=== PATIENT | female | born 1980 | race Caucasian/White ===

== ENCOUNTER 2018-09-01 09:07 | Emergency (ER) | payer MEDICAID ==
[~2018-09-01] VITALS: Ht 165.1 cm; Wt 76.0 kg
[2018-09-01 09:08] VITALS: BP 114/58; PULSE 66; RESP 16; Ht 165.1 cm; Wt 76.0 kg
[2018-09-01] MEDS ORDERED: LORA10CA PO (10:36)
[2018-09-01] MEDS ORDERED: KETO5DRO71 OP (10:36)
--- NOTE | 2018-09-01 17:25 | ERD ---
ER Documentation Chief Complaint Chief Complaint SWELLING OF EYES WITH ITCHING X 1 MONTH HPI Patient is a 38-year-old female with no significant past medical history presenting to the emergency department complaining of bilateral eye itching and periorbital swelling intermittently for the past 1 month. She has been using [id number] eyedrops without significant relief. Symptoms are moderate in severity and worse at night. Patient denies visual changes, fevers, chills, or other symptoms at this time. Patient does not wear glasses or contacts. ROS All systems reviewed and are negative except as per history of present illness. Medications Home Meds Active Scripts Ketotifen Fumarate (ZADITOR) 5 Ml Drops, 5 ML OP BID, #1 BOTTLE Prov:DAYDAY GAITAN PA-C 09/01/18 Loratadine* (Claritin*) 10 Mg Capsule, 10 MG PO DAILY, #30 CAP Prov:DAYDAY GAITAN PA-C 09/01/18 Allergies Allergies: Coded Allergies: No Known Allergies (Verified Allergy, Unknown, 08/02/06) PMhx/Soc Medical and Surgical Hx: pt denies Medical Hx, pt denies Surgical Hx Hx Alcohol Use: No Hx Substance Use: No Hx Tobacco Use: No FmHx Family History: No diabetes Physical Exam Vitals Vital Signs Date Temp Pulse Resp B/P (MAP) Pulse Ox O2 O2 Flow FiO2 Time Delivery Rate 09/01/18 97.8 66 16 114/58 99 09:08 (76) Physical Exam Const: No acute distress Head: Atraumatic Eyes: Mild bilateral conjunctival injection. Extraocular movements are intact bilaterally. There is no significant periorbital edema. ENT: Normal External Ears, Nose and Mouth. Neck: Full range of motion. No meningismus. Resp: Clear to auscultation bilaterally Cardio: Regular rate and rhythm, no murmurs Skin: No petechiae or rashes Ext: No cyanosis, or edema Neur: Awake and alert Psych: Normal Mood and Affect Procedures/MDM 38-year-old female presenting to the emergency department with signs and symptoms most consistent with allergic conjunctivitis. Patient stable and appropriate for discharge and further treatment as an outpatient. Patient agreed with the diagnosis, plan, need for follow-up, return precautions. Ophthalmologic Assessment: Patient's ocular symptoms have stabilized while they have been evaluated in the department and are appropriate for outpatient work up. No evidence of ruptured globe, retinal detachment, acute angle closure glaucoma, or deep space infection. Plan for 24 hour ophthalmologic follow up. Departure Diagnosis: Primary Impression: Allergic conjunctivitis Laterality: bilateral Qualified Codes: H10.13 - Acute atopic conjunctivitis, bilateral Condition: Fair Patient Instructions: Conjunctivitis Caused by Irritation Referrals: [facility] Hours: Mon - Fri 9:00 AM - 5:00 PM Additional Instructions: Call your primary care doctor TOMORROW for an appointment during the next 1-2 days.See the doctor sooner or return here if your condition worsens before your appointment time. SPECIALIST: YOU HAVE A MEDICAL CONDITION WHICH REQUIRES YOU TO SEE A S PECIALIST WITHIN THE NEXT 1-2 DAYS. PLEASE FOLLOW UP WITH YOUR PRIMARY PHYSICIAN FOR REFFERAL.IF YOU DO NOT HAVE A PRIMARY CARE PHYSICIAN AND/OR YOU CAN NOT AFFORD TO SEE A PHYSICIAN THE FOLLOWING RESOURCES HAVE BEEN SUPPLIED TO YOU. IT IS YOUR RESPONSIBILITY TO BE SEEN BY THE SPECIALIST: OPTHALMOLOGY DAYDAY GAITAN PA-C Sep 01, 2018 17:25
== END 2018-09-01 11:33 | disposition home or self-care (01) ==
LOC: FTE 09:07
DX: H10.13 Acute atopic conjunctivitis, bilateral (principal)
CPT/HCPCS: 99282

== ENCOUNTER 2018-09-22 11:35 | Emergency (ER) | payer MEDICAID ==
[~2018-09-22] VITALS: Wt 78.9 kg
[~2018-09-22 11:35] MED LIST: KETO5DRO71 OP; LORA10CA PO
[2018-09-22 11:37] VITALS: BP 125/62; PULSE 62; RESP 18
--- NOTE | 2018-09-22 12:46 | ERD ---
ER Documentation Chief Complaint Chief Complaint 9 YEARS AGO, DRAINAGE NOTED FROM SITE HPI This is a 38-year-old female who presents to the emergency department with concern of a 4 cm prepubic area of reddening along scar. Last C- section 9 years ago. States rash started 2-3 weeks ago with small red spot and has increased in area since then. Denies abdominal pain, no fevers, no difficulty with urination or having bowel movements. ROS All systems reviewed and are negative except as per history of present illness. Medications Home Meds Active Scripts Mupirocin* (Bactroban*) 2% -22 Gram Oint...g., 1 APPLIC TOP TID for 10 Days, #22 GM Prov:DIANA SÁNCHEZ [employer]ESS DEVELOPMENT CHEMIST 09/22/18 Ketotifen Fumarate (ZADITOR) 5 Ml Drops, 5 ML OP BID, #1 BOTTLE Prov:DAYDAY GAITAN PA-C 09/01/18 Loratadine* (Claritin*) 10 Mg Capsule, 10 MG PO DAILY, #30 CAP Prov:DAYDAY GAITAN PA-C 09/01/18 Allergies Allergies: Coded Allergies: No Known Allergies (Verified Allergy, Unknown, 08/02/06) PMhx/Soc Medical and Surgical Hx: pt denies Medical Hx Hx Alcohol Use: No Hx Substance Use: No Hx Tobacco Use: No Physical Exam Vitals Vital Signs Date Temp Pulse Resp B/P (MAP) Pulse Ox O2 O2 Flow FiO2 Time Delivery Rate 09/22/18 97.3 62 18 125/62 99 11:37 (83) Physical Exam Const: No acute distress Head: Atraumatic Eyes: Normal Conjunctiva, PERRL ENT: Normal External Ears, Nose and Mouth. Neck: Full range of motion. No meningismus. Resp: Clear to auscultation bilaterally Cardio: Regular rate and rhythm, no murmurs Abd: Soft, non tender, non distended. Normal bowel sounds. Skin: No petechiae, brusing, abrasions. Suprapubic incision: 4 cm x 1 cm area of redness, slightly pink/honey crusted plaques, no satellite lesions, no drainage noted, no induration, no pain with palpation Back: No midline or flank tenderness Ext: No cyanosis, or edema Neur: Awake and alert Psych: Normal Mood and Affect Procedures/MDM This 38-year-old female presents with concern of redness over prior scar. This appears to be a superficial skin infection most likely impetigo. Low suspicion for fungal infection due to lack of satellite lesions, wound is not erythematous, does not itch. Low suspicion for complication of incision due to lack of pain with palpation, no induration, no warmth, no drainage. Although this infection does not appear to be a folliculitis as redness extends superiorly from pubic area, patient does shave her pubic hair below this area, patient was instructed to be careful with shaving. Additionally patient has abdominal pannus that lays over lower pubic area. Patient instructed on preventing intertrigo and use of A&D ointment and keeping area dry. Patient instructed on close follow-up with primary care provider for evaluation of wound progress with use of Bactroban. Departure Diagnosis: Primary Impression: Impetigo Condition: Stable Patient Instructions: Impetigo [facility]errals: [facility] Additional Instructions: Thank you very much for allowing us to participate in your care. Your health and safety is our top priority at [facility]. Call your primary care doctor TOMORROW for an appointment during the next 2-4 days and bring all the information and medications prescribed. Have prescriptions filled and follow precisely the directions on the label. If the symptoms get worse and your provider is unavailable, return to the Emergency Department immediately. Use prescribed Bactroban applied to area 3 times a day for 7-10 days. Return to the emergency room immediately with any worsening of symptoms including increased redness, heat, drainage, pain. DIANA SÁNCHEZ NP Sep 22, 2018 12:46
[2018-09-22] MEDS ORDERED: MUPI22OI2 TOP (12:48)
== END 2018-09-22 13:35 | disposition home or self-care (01) ==
LOC: FTE 11:35
DX: L01.00 Impetigo, unspecified (principal)
CPT/HCPCS: 99283

== ENCOUNTER 2018-09-27 07:04 | Emergency (ER) | payer MEDICAID ==
[~2018-09-27] VITALS: Wt 78.4 kg
[~2018-09-27 07:04] MED LIST changes: +MUPI22OI2 TOP
[2018-09-27 07:05] VITALS: BP 107/53; PULSE 67; RESP 18
--- NOTE | 2018-09-27 08:17 | ERD ---
ER Documentation Chief Complaint Chief Complaint esperanza eye lid swelling HPI 38-year-old female, presents to the emergency department, complaining of intermittent episodes of bilateral eyelid swelling after having artificial eyelashes extension 3 months ago. The extensions were removed 1 month ago but she is still persist with intermittent episodes of localized pruritic erythema and edema. No discharge, no blurred vision, no fever, no chills, no headache. ROS All systems reviewed and are negative except as per history of present illness. Medications Home Meds Active Scripts Prednisone* (Prednisone*) 20 Mg Tab, 40 MG PO DAILY for 5 Days, TAB Prov:EROS HUNT MD 09/27/18 Triamcinolone Acetonide (Triamcinolone Acetonide) 0.5% - 15 Gm Oint..gm., 1 APPLIC TOP BID for 5 Days, #1 TUB Prov:EROS HUNT MD 09/27/18 Mupirocin* (Bactroban*) 2% -22 Gram Oint...g., 1 APPLIC TOP TID for 10 Days, #22 GM Prov:DIANA SÁNCHEZ NP 09/22/18 Ketotifen Fumarate (ZADITOR) 5 Ml Drops, 5 ML OP BID, #1 BOTTLE Prov:DAYDAY GAITAN PA-C 09/01/18 Loratadine* (Claritin*) 10 Mg Capsule, 10 MG PO DAILY, #30 CAP Prov:DAYDAY GAITAN PA-C 09/01/18 Allergies Allergies: Coded Allergies: No Known Allergies (Verified Allergy, Unknown, 08/02/06) PMhx/Soc Hx Alcohol Use: Yes (occassional) Hx Substance Use: No Hx Tobacco Use: No Smoking Status: Never smoker FmHx Family History: No diabetes, No coronary disease Physical Exam Vitals Vital Signs Date Temp Pulse Resp B/P (MAP) Pulse Ox O2 O2 Flow FiO2 Time Delivery Rate 09/27/18 97.8 67 18 107/53 99 07:05 (71) Physical Exam Patient alert, oriented, vital signs stable. HEENT: Normocephalic, atraumatic. EYES: Bilateral upper and lower eyelid erythema and edema, PERRLA, EOMI, Sclera and conjunctiva appear normal. EARS: Canals clear, tympanic membranes WNL. THROAT: Normal oropharynx. NECK: Supple, No lymphadenopathy. Full ROM without pain or tenderness. HEART: RRR, no rubs, murmurs, clicks or gallops. LUNGS: Clear to auscultation. ABDOMEN: Soft, non-tender without masses or hepatosplenomegaly. EXTREMITIES: No edema bilaterally. BACK: Full ROM, no deformity, normal back exam NEURO: Cranial nerves grossly intact, no motor or sensory deficit SKIN: No rashes, no petechia. Procedures/MDM Differential diagnosis include but not limited to: infection bacterial/viral/fungal, iritis, scleritis, corneal abrasion, allergies, foreign body, glaucoma. Physical examination and clinical presentation consistent most likely with allergic blepharitis. During the ED course the patient remained stable, no new complaints. Clinical impression discussed with patient who agrees with management. The patient is stable to be treated outpatient and will be discharged home; Some side effects of prescribed medications (headache, rash, nausea, vomiting, diarrhea, interactions with other medications) were reviewed. The patient was instructed to follow up with the primary care provider in the next 48h. If symptoms persist, worsen or new symptoms develop, then patient should return to the ED immediately. Disclaimer: Inadvertent spelling and grammatical errors are likely due to EHR/dictation software use and do not reflect on the overall quality of patient care. Also, please note that the electronic time recorded on this note does not necessarily reflect the actual time of the patient encounter. Departure Diagnosis: Primary Impression: Allergic blepharitis Condition: Stable Additional Instructions: Thank you very much for allowing us to participate in your care. Your health and safety is our top priority at [facility]. Call your primary care doctor TOMORROW for an appointment during the next 2-4 days and bring all the information and medications prescribed. Have prescriptions filled and follow precisely the directions on the label. If the symptoms get worse and your provider is unavailable, return to the Emergency Department immediately. EROS HUNT MD Sep 27, 2018 08:17
[2018-09-27] MEDS ORDERED: TRIA15OI9 TOP (08:25)
[2018-09-27] MEDS ORDERED: PRED20TA PO (08:25)
== END 2018-09-27 08:35 | disposition home or self-care (01) ==
LOC: FTE 07:04
DX: H01.001 Unspecified blepharitis right upper eyelid (principal); H01.002 Unspecified blepharitis right lower eyelid; H01.005 Unspecified blepharitis left lower eyelid; H01.004 Unspecified blepharitis left upper eyelid
CPT/HCPCS: 99283